=== PATIENT | female | born 1975 | race Caucasian/White ===

== ENCOUNTER 2019-02-15 20:43 | Emergency (ER) | payer SELFPAY | END 2019-02-15 23:09 | disposition home or self-care (01) | LOC: ERS 20:43 | DX: Z76.0 Encounter for issue of repeat prescription (principal); G40.209 Localization-related (focal) (partial) symptomatic epilepsy and epileptic syndromes with complex partial seizures, not intractable, without status epilepticus; F32.9 Major depressive disorder, single episode, unspecified; F43.10 Post-traumatic stress disorder, unspecified; Z79.899 Other long term (current) drug therapy | CPT/HCPCS: 99281 ==

== ENCOUNTER 2019-02-22 19:58 | Emergency (ER) | payer SELFPAY | END 2019-02-22 20:26 | disposition home or self-care (01) | LOC: ERS 19:58 | DX: Z76.0 Encounter for issue of repeat prescription (principal); F43.10 Post-traumatic stress disorder, unspecified; F32.9 Major depressive disorder, single episode, unspecified; G40.89 Other seizures | CPT/HCPCS: 99281 ==

== ENCOUNTER 2019-03-09 19:24 | Emergency (ER) | payer SELFPAY ==
[2019-03-09 20:11] LABS: #Lymphocytes 3.3 thou/uL (1.20-3.40); #Monocytes 0.7 thou/uL (0.11-0.59); #Neutrophils 2.9 thou/uL (1.40-6.50); %Basophils 0.3 % (0.0-1.0); %Eosinophils 0.7 % (0.0-10.0); %Lymphocytes 47.1 % (21.0-51.0); %Monocytes 10.3 % (0.0-10.0); %Neutrophils 41.7 % (42.0-75.0); Mean Corpuscular HGB CONC 33.9 g/dL (32.0-36.0); Mean Corpuscular Volume 97.6 fL (78.0-98.0); Mean Platelet Volume 6.9 fL (7.4-10.4); Platelet Count 224 thou/uL (130-400); RBC Distribution Width 11.2 % (11.5-14.5); Red Blood Cell (RBC) Count 3.94 mill/uL (4.20-5.40)
[2019-03-09 20:21] LABS: BHCG - Serum Negative (NEGATIVE); Pregs Control Background? CLEAR/WHITE (CLR/WHITE); Pregs Control Bar Appear? YES (CONTROL BAR)
[2019-03-09 20:34] LABS: ALT (SGPT) 26 U/L (8-55); AST (SGOT) 25 U/L (5-34); Albumin 4.1 g/dL (3.5-5.0); Alkaline Phosphatase 57 U/L (40-110); Anion Gap 10 mmol/L (10-20); BUN (Urea Nitrogen) 14 mg/dL (7.0-18.7); Bilirubin, Total 0.4 mg/dL (0.2-1.2); Calc. Creatinine Clearance 0 mL/min (70-130); Calcium 9.4 mg/dL (7.8-10.44); Carbon Dioxide 25 mmol/L (22-29); Chloride 107 mmol/L (98-107); Estimated GFR-MDRD 82; Globulin 3.3 g/dL (2.4-3.5); Glucose 139 mg/dL (70-105); Potassium 3.8 mmol/L (3.5-5.1); Protein, Total 7.4 g/dL (6.0-8.3); Sodium 138 mmol/L (136-145)
[2019-03-09] MEDS ORDERED: Divalproex Sodium 250 MG (DR) TAB ONE (20:37)
[2019-03-09] MEDS ORDERED: carBAMazepine 200 MG TAB PO SCH ×2 (21:00→21:15)
[2019-03-09] MEDS ORDERED: Divalproex Sodium DR 500 MG TAB PO SCH (21:15)
== END 2019-03-09 21:26 | disposition home or self-care (01) ==
LOC: ERS 19:24
DX: R56.9 Unspecified convulsions (principal); F43.10 Post-traumatic stress disorder, unspecified; Z79.899 Other long term (current) drug therapy
CPT/HCPCS: 36415; 80053; 84703; 85025; 99284

== ENCOUNTER 2020-01-04 09:35 | Emergency (ER) | payer OTHER ==
--- NOTE | 2020-01-04 10:09 | RAD ---
XR Knee Rt 4 View STANDARD History: Pain. Comparison: None. Findings: No acute displaced fracture malalignment. No significant joint effusion. Incidental note is made of a fabella. Impression: No acute osseous abnormality.
== END 2020-01-04 12:06 | disposition left against medical advice (07) ==
LOC: ERS 09:35
DX: Z53.21 Procedure and treatment not carried out due to patient leaving prior to being seen by health care provider (principal)

== ENCOUNTER 2020-04-09 14:23 | Emergency (ER) | payer OTHER | END 2020-04-09 15:25 | disposition home or self-care (01) | LOC: ERS 14:23 | DX: R56.9 Unspecified convulsions (principal); Z91.14 Patient's other noncompliance with medication regimen; Z79.899 Other long term (current) drug therapy; F17.210 Nicotine dependence, cigarettes, uncomplicated ==

== ENCOUNTER 2020-05-06 18:28 | Emergency (ER) | payer OTHER, SELFPAY | END 2020-05-06 20:06 | disposition home or self-care (01) | LOC: ERS 18:28 | DX: L23.7 Allergic contact dermatitis due to plants, except food (principal); F17.210 Nicotine dependence, cigarettes, uncomplicated | CPT/HCPCS: 99282 ==

== ENCOUNTER 2020-06-16 14:45 | Emergency (ER) | payer SELFPAY ==
[2020-06-16] MEDS ORDERED: Ibuprofen 800 MG TAB ONE (15:21)
== END 2020-06-16 16:08 | disposition home or self-care (01) ==
LOC: ERS 14:45
DX: S80.01XA Contusion of right knee, initial encounter (principal); Z79.899 Other long term (current) drug therapy; F17.210 Nicotine dependence, cigarettes, uncomplicated; W07.XXXA Fall from chair, initial encounter

== ENCOUNTER 2020-06-23 17:32 | Emergency (ER) | payer SELFPAY ==
[2020-06-23] MEDS ORDERED: predniSONE 20 MG TAB ONE (18:35)
[2020-06-23] MEDS ORDERED: diphenhydrAMINE 25 MG CAP ONE (18:35)
== END 2020-06-23 19:09 | disposition home or self-care (01) ==
LOC: ERS 17:32
DX: T78.40XA Allergy, unspecified, initial encounter (principal); F17.210 Nicotine dependence, cigarettes, uncomplicated
CPT/HCPCS: 99283; J7512; Q0163

== ENCOUNTER 2020-08-03 19:17 | Emergency (ER) | payer SELFPAY | END 2020-08-03 19:49 | disposition home or self-care (01) | LOC: ERS 19:17 | DX: K02.9 Dental caries, unspecified (principal); F17.210 Nicotine dependence, cigarettes, uncomplicated | CPT/HCPCS: 99281 ==

== ENCOUNTER 2020-08-25 12:28 | Emergency (ER) | payer SELFPAY ==
[2020-08-25] MEDS ORDERED: Ketorolac Tromethamine 30 MG/ML VIAL ONE (13:33)
== END 2020-08-25 15:11 | disposition home or self-care (01) ==
LOC: ERS 12:28
DX: M25.562 Pain in left knee (principal); F17.210 Nicotine dependence, cigarettes, uncomplicated; Z79.899 Other long term (current) drug therapy
CPT/HCPCS: 96372; J1885

== ENCOUNTER 2021-10-02 14:08 | Outpatient (CLI) | payer OTHER | END 2021-10-02 14:09 | disposition home or self-care (01) | LOC: BICMAMMO 14:08 | PROVIDERS: ATTEND Family Medicine | DX: Z13.820 Encounter for screening for osteoporosis (principal); Z78.0 Asymptomatic menopausal state; M85.88 Other specified disorders of bone density and structure, other site | CPT/HCPCS: 77080 ==

== ENCOUNTER 2022-02-24 19:24 | Emergency (ER) | payer OTHER | END 2022-02-24 22:11 | disposition left against medical advice (07) | LOC: ERS 19:24 | DX: Z53.21 Procedure and treatment not carried out due to patient leaving prior to being seen by health care provider (principal) ==